=== PATIENT | male | born 1990 | race Caucasian/White ===

== ENCOUNTER 2017-05-04 20:07 | Emergency (ER) | payer SELFPAY ==
[~2017-05-04] VITALS: Ht 188 cm; Wt 86.0 kg
[~2017-05-04 20:07] MED LIST: MAGN1SOL2 PO
[2017-05-04 20:09] VITALS: BP 147/87; PULSE 104; RESP 15; TEMP 99.3; O2SAT 100
--- NOTE | 2017-05-04 20:29 | PD ---
Physical Exam Time Seen by Provider: 20:27 Narrative 26 y/o male here for evaluation of dysuria, hematuria, urethral discharge. Denies any new sexual partners recently. Denies abdominal pain, flank pain. Vital signs reviewed. Seen at triage desk. Awaiting bed placement. Data Data Last Documented VS Vital Signs Date Time Temp Pulse Resp B/P Pulse Ox O2 Delivery O2 Flow Rate FiO2 05/04/17 20:09 99.3 104 15 147/87 100 Room Air [facility] Medical Record Reviewed: Yes Supervised Visit with ELIZABETH: Kerwin Deluna May 04, 2017 20:29
--- NOTE | 2017-05-04 21:34 | PD ---
HPI Chief Complaint: Complaint Time Seen by Provider: 21:32 Travel History International Travel<30 days: No Contact w/Intl Traveler<30days: No Traveled to known affect area: No History of Present Illness HPI Patient comes in complaining of dysuria ongoing for 5 days and a yellowish white discharge that began yesterday. Patient states that this happened in the past secondary to UTIs and kidney stones. Patient reports pain does not feel like a kidney stone at this time. Denies anything making it better. He states this got progressively worse. Patient does admit to being sexually active with one partner denies this partner having any symptoms currently. Denies any fevers, chest pain, back pain, shortness of breath, abdominal pain, nausea, or vomiting. PFSH Past Medical History Cancer: Yes ([facility]HOMA) Chemotherapy: Yes (2002-LYMPHOMA) Implanted Vascular Access Dvce: Yes ([facility] PORT REMOVED) Social History Alcohol Use: No Tobacco Use: No Substance Use: No Allergies-Medications (Allergen,Severity, Reaction): Coded Allergies: Contrast Media (Verified Allergy, Severe, SOB, 05/04/17) Augmentin (Verified Allergy, Intermediate, 05/04/17) Bactrim (Verified Allergy, Intermediate, SOB, 05/04/17) Cinnamon (Verified Allergy, Intermediate, EDEMA AND SOB, 05/04/17) Sulfa (Verified Allergy, Intermediate, SOB, 05/04/17) Vincristine (Verified Allergy, Intermediate, CHEMICAL BURN, 05/04/17) Reported Meds & Prescriptions Reported Meds & Active Scripts Active Doxycycline Hyclate 100 Mg Cap 100 Mg PO BID Review of Systems Except as stated in HPI: all other systems reviewed are Neg Physical Exam Narrative GENERAL: Well-developed, well nourished, in no acute distress, and non-ill appearing. SKIN: Focused skin assessment warm and dry. HEAD: Atraumatic. Normocephalic. EYES: Pupils equal and round. EOMI. No scleral icterus. No injection or drainage. ENT: No nasal bleeding or discharge. Mucous membranes pink and moist. NECK: Trachea midline. Supple. No nuclear rigidity. RESPIRATORY: No accessory muscle use. No respiratory distress. GASTROINTESTINAL: Abdomen soft, non-tender, nondistended and no guarding. Hepatic and splenic margins not palpable. No CVA tenderness. No pulsatile mass. MUSCULOSKELETAL: No obvious deformities. No clubbing. No cyanosis. No edema. Full range of motion. NEUROLOGICAL: Awake and alert. No obvious cranial nerve deficits. Motor grossly within normal limits. Normal speech. PSYCHIATRIC: Appropriate mood and affect; insight and judgment normal. Data Data Last Documented VS Vital Signs Date Time Temp Pulse Resp B/P Pulse Ox O2 Delivery O2 Flow Rate FiO2 05/04/17 22:42 89 18 131/78 99 05/04/17 20:09 99.3 Room Air Orders Urinalysis - C+S If Indicated (05/04/17 21:31) Gc And Chlamydia Pcr (05/04/17 21:31) Urine Culture (05/04/17 21:40) Ceftriaxone Inj (Rocephin Inj) (05/04/17 22:30) Lidocaine Pf 1% Inj (Xylocaine-Mpf 1% In (05/04/17 22:30) Lidocaine 1% Inj (Xylocaine 1% Inj) (05/04/17 22:28) Labs Laboratory Tests Test 05/04/17 21:40 Urine Color YELLOW Urine Turbidity HAZY Urine pH 6.5 Urine Specific Paradis 1.025 Urine Protein TRACE mg/dL Urine Glucose (UA) NEG mg/dL Urine Ketones NEG mg/dL Urine Occult Blood SMALL Urine Nitrite NEG Urine Bilirubin NEG Urine Urobilinogen LESS THAN 2.0 MG/DL Urine Leukocyte Esterase LARGE Urine RBC 27 /hpf Urine WBC /hpf Urine Mucus FEW /lpf Microscopic Urinalysis Comment CULTURE INDICATED Chlamydia trachomatis DNA NOT DETECTED (PCR) Neisseria gonorrhoeae DNA DETECTED (PCR) MDM Medical Decision Making Medical Screen Exam Complete: Yes Emergency Medical Condition: Yes Differential Diagnosis UTI, STD, renal calculi, other Narrative Course Patient in no obvious distress upon re-evaluation. All pertinent laboratory result(s) discussed with patient with the exception of the GC chlamydia is currently pending. Patient was asked if they wanted to speak to my attending, which the patient did not wish to do at this time. Any questions/concerns in reference to patient diagnosis/condition discussed and clarified prior to patient's discharge. Reinforced sheer importance of close follow up with patient 's primary physician or primary care clinic. Instructed patient to return to ED immediately, if symptoms return/worsen. Pt showed understanding of above instructions. Further instructions and recommendations were detailed in discharge paperwork. Pt ambulated without difficulty out of ED at discharge. Diagnosis Primary Impression: UTI (urinary tract infection) Qualified Code: N30.01 - Acute cystitis with hematuria Patient Instructions: General Instructions, Urinary Tract Infection in Men (DC) Additional Instructions: Follow-up with your primary care physician next week for reevaluation. Do not have intercourse until you get your gonorrhea and chlamydia results and if positive not have intercourse all sexual partners tested and treated. Practice safe sex to prevent STDs and/or unwanted pregnancies. If you would like a copy of your gonorrhea and chlamydia results bring a photo ID to medical records in 24-48 hours to get a copy. Return to the emergency department if symptoms get worse. Scripts Doxycycline Hyclate 100 Mg [id number] Mg PO BID #[id number] CAP Ref 0 Prov:Harlan Snyder MD 05/04/17 Disposition: 01 DISCHARGE HOME Condition: Stable Wilmer Llanos May 04, 2017 21:34
[2017-05-04 22:05] LABS: BLOOD, URINE SMALL (NEG); COMMENT (UR) CULTURE INDICATED; CULTURE IF INDICATED CULTURE INDICATED; GLUCOSE,URINE NEG (NEG); KETONE, URINE NEG (NEG); MUCUS URINE FEW /lpf (OCC); NITRITE,URINE NEG (NEG); PH, URINE 6.5 (5.0-8.5); URINE COLOR YELLOW (YELLW/STRAW)
[2017-05-04] MEDS ORDERED: DOXY100C PO (22:26)
[2017-05-04] MEDS ORDERED: LIDOCAINE HCL 1% 30 ML VIAL ONE (22:28)
[2017-05-04] MEDS ORDERED: LIDOCAINE HCL 1% PF 30 ML VIAL XX ONE (22:30)
[2017-05-04 22:42] VITALS: BP 131/78
[2017-05-04 23:32] LABS: CHLAMYDIA PCR NOT DETECTED (NOT DETECT); NEISSERIA PCR DETECTED (NOT DETECT)
== END 2017-05-04 22:54 | disposition home or self-care (01) ==
LOC: NEPK 20:07
DX: N30.01 Acute cystitis with hematuria (principal); Z85.72 Personal history of non-Hodgkin lymphomas
CPT/HCPCS: 81001; 87086; 87491; 87591; 96372; 99284; J0696